=== PATIENT | male | born 1965 | race African-American/Black ===

== ENCOUNTER 2018-03-14 13:47 | Emergency (ER) | payer SELFPAY ==
[2018-03-14] MEDS ORDERED: Fluorescein Opthalmic Strip ONE (14:19)
[2018-03-14] MEDS ORDERED: Proparacaine 0.5% Opth 15 ML BOT ONE (14:19)
== END 2018-03-14 15:07 | disposition home or self-care (01) ==
LOC: ERS 13:47
DX: S05.02XA Injury of conjunctiva and corneal abrasion without foreign body, left eye, initial encounter (principal); I11.0 Hypertensive heart disease with heart failure; I50.9 Heart failure, unspecified; F17.210 Nicotine dependence, cigarettes, uncomplicated; Z79.899 Other long term (current) drug therapy; Z79.84 Long term (current) use of oral hypoglycemic drugs; X58.XXXA Exposure to other specified factors, initial encounter
CPT/HCPCS: 99283

== ENCOUNTER 2018-07-28 10:58 | Emergency (ER) | payer SELFPAY ==
--- NOTE | 2018-07-28 12:07 | RAD ---
EXAM: CHEST PA AND LATERAL: History: 52-year-old male with history of wheezing cough for 3-4 days. Comparison: 07-29-14 FINDINGS: Heart size is normal. The lungs are clear. Slight costophrenic angle blunting. No confluent pneumonia , overt edema, or pleural effusion. IMPRESSION: No significant acute intrathoracic disease. Slight costophrenic angle blunting. Atherosclerosis of th e aorta. Overall improvement in appearance when compared to the prior study. POS: IVETH
[2018-07-28 12:34] LABS: #Basophils 0.1 thou/uL (0.0-0.2); #Eosinphils 0.1 thou/uL (0.0-0.7); #Lymphocytes 1.5 thou/uL (1.20-3.40); #Neutrophils 4.1 thou/uL (1.40-6.50); %Basophils 0.8 % (0.0-1.0); %Eosinophils 1.8 % (0.0-10.0); %Lymphocytes 21.8 % (21.0-51.0); %Monocytes 14.6 % (0.0-10.0); Hemoglobin 13.1 g/dL (14.0-18.0); Mean Corpuscular HGB CONC 32.7 g/dL (32.0-36.0); Mean Corpuscular Hemoglobin 28.5 pg (27.0-31.0); Mean Platelet Volume 9.3 fL (7.4-10.4); Platelet Count 137 thou/uL (130-400); RBC Distribution Width 12.5 % (11.5-14.5); White Blood Cell (WBC) Count 6.7 thou/uL (4.8-10.8)
[2018-07-28 13:03] LABS: ALT (SGPT) 16 U/L (8-55); AST (SGOT) 20 U/L (5-34); Albumin 4.1 g/dL (3.5-5.0); Alkaline Phosphatase 72 U/L (40-150); Anion Gap 11 mmol/L (10-20); BUN (Urea Nitrogen) 7 mg/dL (8.4-25.7); Bilirubin, Total 0.7 mg/dL (0.2-1.2); Calc. Creatinine Clearance 0 mL/min (70-130); Calcium 9.2 mg/dL (7.8-10.44); Carbon Dioxide 31 mmol/L (22-29); Chloride 105 mmol/L (98-107); Estimated GFR-MDRD 88; Glucose 101 mg/dL (70-105); Potassium 3.5 mmol/L (3.5-5.1); Protein, Total 7.1 g/dL (6.0-8.3); Sodium 143 mmol/L (136-145)
== END 2018-07-28 13:31 | disposition home or self-care (01) ==
LOC: ERS 10:58
DX: J06.9 Acute upper respiratory infection, unspecified (principal); I11.0 Hypertensive heart disease with heart failure; I50.9 Heart failure, unspecified; J42 Unspecified chronic bronchitis; F17.210 Nicotine dependence, cigarettes, uncomplicated; Z79.84 Long term (current) use of oral hypoglycemic drugs; Z79.82 Long term (current) use of aspirin; Z79.899 Other long term (current) drug therapy
CPT/HCPCS: 36415; 71046; 80053; 83880; 84484; 85025; 93005

== ENCOUNTER 2020-07-14 04:39 | Inpatient (IN) | payer SELFPAY ==
[2020-07-14] MEDS ORDERED: Furosemide 40 MG/4 ML VIAL ONE ×2 (04:59→14:28)
[2020-07-14] MEDS ORDERED: Nitroglycerin 2% Ointment 1 INCH/1 GM Packet ONE (04:59)
[2020-07-14] MEDS ORDERED: Furosemide 20 MG/2 ML VIAL ONE (04:59)
[2020-07-14 05:30] LABS: #Basophils 0.1 thou/uL (0.0-0.2); #Eosinphils 0.3 thou/uL (0.0-0.7); #Lymphocytes 1.2 thou/uL (1.20-3.40); #Monocytes 0.5 thou/uL (0.11-0.59); #Neutrophils 2.6 thou/uL (1.40-6.50); %Basophils 1.1 % (0.0-1.0); %Lymphocytes 26.3 % (21.0-51.0); %Monocytes 10.8 % (0.0-10.0); %Neutrophils 55.9 % (42.0-75.0); Hemoglobin 13.8 g/dL (14.0-18.0); Mean Corpuscular HGB CONC 32.9 g/dL (32.0-36.0); Mean Corpuscular Hemoglobin 29.6 pg (27.0-31.0); Mean Corpuscular Volume 89.8 fL (78.0-98.0); Mean Platelet Volume 10.9 fL (7.4-10.4); Platelet Count 140 thou/uL (130-400); RBC Distribution Width 12.1 % (11.5-14.5); Red Blood Cell (RBC) Count 4.67 mill/uL (4.70-6.10); White Blood Cell (WBC) Count 4.6 thou/uL (4.8-10.8)
[2020-07-14 05:40] LABS: ALT (SGPT) 48 U/L (8-55); AST (SGOT) 50 U/L (5-34); Albumin 3.8 g/dL (3.5-5.0); Alkaline Phosphatase 74 U/L (40-110); Anion Gap 15 mmol/L (10-20); BUN (Urea Nitrogen) 23 mg/dL (8.4-25.7); Bilirubin, Total 0.3 mg/dL (0.2-1.2); Calc. Creatinine Clearance 0 mL/min (70-130); Calcium 8.6 mg/dL (7.8-10.44); Carbon Dioxide 22 mmol/L (22-29); Chloride 110 mmol/L (98-107); Globulin 2.8 g/dL (2.4-3.5); Glucose 112 mg/dL (70-105); Protein, Total 6.6 g/dL (6.0-8.3); Sodium 143 mmol/L (136-145)
[2020-07-14 06:02] LABS: CKMB 2.7 ng/mL (0-6.6)
[2020-07-14] MEDS ORDERED: Aspirin Chewable 81 MG TAB ONE (06:49)
--- NOTE | 2020-07-14 07:57 | RAD ---
XR Chest 1 View Portable HISTORY: Shortness of breath COMPARISON: 07/28/2018 FINDINGS: The heart size is borderline. The aorta is tortuous. There is haziness in the right lower l kandice. No pneumothoraces or pleural effusions are seen. There are degenerative changes in the spine. IMPRESSION: Probable early/developing pneumonia.
[2020-07-14 09:20] LABS: Troponin I 0.081 ng/mL (< 0.028)
[2020-07-14] MEDS ORDERED: Dextrose 50% Abboject 50 ML SYRINGE SLOW IVP PRN (09:37)
[2020-07-14] MEDS ORDERED: Dextrose 5% in Water 1,000 ML IV PRN (09:37)
--- NOTE | 2020-07-14 09:52 | PDOC.HHP ---
Hospitalist HPI - History of Present Illness History of Present Illness: ADMISSION DATE: 07/14/2020 TIME OF ASSESSMENT: 04 15 PRIMARY CARE PHYSICIAN: [facility] CHIEF COMPLAINT: Shortness of breath HPI: Patient is a very pleasant 54-year-old male past medical history significant for congestive heart failure, hypertension, hyperlipidemia who is not been able to be compliant with his medications for few months now. He states that he has been off of his Lasix, lisinopril, and hydralazine since the pandemic started as he has not been able to get in with his doctor and has not had insurance. He has been compliant with his carvedilol. Patient states that 7 days ago he felt short of breath and began to wheeze. He knew that it was his CHF as he is well versed in the symptoms of it. Last night and today he woke up at night from difficulty breathing when he was lying down. He also states that his stomach has been swelling some but has not noticed any swelling in his extremities. Patient denies fever, contact with sick persons, bowel or bladder changes, chest pain. Patient also is a type II diabetic however he has been off of his medications per doctor's orders since he was successful with a 70 pound weight loss with changes to his diet. He states his base weight is approximately 180 pounds now. Patient does have history of previous illicit drug use. ED COURSE: Vital Signs: Blood pressure 159/83, pulse 57, respiratory rate 20, temp 98.1, 96% on 2 L Patient has had x-ray, EKG, and lab work completed. He has been administered aspirin 324 mg oral, furosemide 60 mg IV, nitro 1 inch topical. PAST MEDICAL HISTORY: CHF, hypertension, hyperlipidemia, type 2 diabetes PAST SURGICAL HISTORY: None SOCIAL HISTORY: Patient lives in a house with roommates. He smokes half a pack per day of cigarettes, drinks beer occasionally and denies any illicit drug use. FAMILY HISTORY: Diabetes type 2 ALLERGIES: No known drug allergies CURRENT MEDICATIONS: Carvedilol Patient has been prescribed Lasix, lisinopril, hydralazine previously but has not taken them in the past months due to insurance reasons Hospitalist ROS - Review of Systems Respiratory: reports: shortness of breath Cardiovascular: reports: orthopnea All other systems reviewed; all pertinent +/- noted in HPI/Subj - Exam General Appearance: NAD, awake alert ENT: normocephalic atraumatic Neck: supple Heart: RRR, no murmur, no gallops, no rubs, normal peripheral pulses Respiratory: CTAB, no wheezes, no rales, no ronchi, normal chest expansion Gastrointestinal: soft, non-tender, normal bowel sounds, distended (Slightly) Extremities: no edema Skin: normal turgor Neurological: no focal deficits Musculoskeletal: normal tone, normal strength, no muscle wasting Psychiatric: normal affect, normal behavior, A&O x 3 Hospitalist Results - Labs Result Diagrams: 07/14/20 04:57 07/14/20 04:57 Lab results: WBC 4.6 thou/uL (4.8-10.8) L 07/14/20 04:57 Hgb 13.8 g/dL (14.0-18.0) L 07/14/20 04:57 Hct 42.0 % (42.0-52.0) 07/14/20 04:57 MCV 89.8 fL (78.0-98.0) 07/14/20 04:57 Plt Count 140 thou/uL (130-400) 07/14/20 04:57 Neutrophils % 55.9 % (42.0-75.0) 07/14/20 04:57 Sodium 143 mmol/L (136-145) 07/14/20 04:57 Potassium 4.0 mmol/L (3.5-5.1) 07/14/20 04:57 Chloride 110 mmol/L (98-107) H 07/14/20 04:57 Carbon Dioxide 22 mmol/L (22-29) 07/14/20 04:57 BUN 23 mg/dL (8.4-25.7) 07/14/20 04:57 Creatinine 1.26 mg/dL (0.7-1.3) 07/14/20 04:57 Glucose 112 mg/dL (70-105) H 07/14/20 04:57 Calcium 8.6 mg/dL (7.8-10.44) 07/14/20 04:57 Total Bilirubin 0.3 mg/dL (0.2-1.2) 07/14/20 04:57 AST 50 U/L (5-34) H 07/14/20 04:57 ALT 48 U/L (8-55) 07/14/20 04:57 Alkaline Phosphatase 74 U/L (40-110) 07/14/20 04:57 CK-MB (CK-2) 2.7 ng/mL (0-6.6) 07/14/20 04:57 Troponin I 0.081 ng/mL (< 0.028) H 07/14/20 08:45 B-Natriuretic Peptide 373.9 pg/mL (0-100) H 07/14/20 04:57 Serum Total Protein 6.6 g/dL (6.0-8.3) 07/14/20 04:57 Albumin 3.8 g/dL (3.5-5.0) 07/14/20 04:57 - EKG Interpretation EKG: Sinus rhythm 64 bpm - Radiology Interpretation Chest x-ray Status: image reviewed by me, report reviewed by me Additional Comment: Imaging report: Findings: Heart size is borderline. The aorta is tortuous. There is haziness in the right lower lung. No pneumothoraces or pleural effusions are seen. There are degenerative changes in the spine. Impression: Probable early/developing pneumonia Hospitalist H&P A/P - Plan Plan: Acute CHF exacerbation Continue IV diuresis No current echowe will obtain Monitor on telemetry Restart home medications slowly as he has not been on them in quite some time Restart aspirin Elevated troponins Denies chest pain Possibly due to demand ischemia Continue to trend troponins and monitor for chest pain or increasing shortness of breath Monitor on telemetry Hypertension Monitor every 4 hours or more if needed Restart home medications slowly Have as needed antihypertensives available if necessary Type 2 diabetes Monitor Accu-Cheks ACH Not currently taking medications as has been successful with weight loss, layton weathers MD stopped his Metformin Check A1c Medication noncompliance Patient has had issues since the start of the pandemic with insurance and work, will consult case management for possible assistance CODE STATUS: Full Surrogate decision maker would be his brother, Ray
[2020-07-14] MEDS ORDERED: Nicotine 14 MG PATCH ONE (10:55)
[2020-07-14] MEDS ORDERED: Acetaminophen 325 MG TAB ONE (10:55)
[2020-07-14] MEDS: Nicotine 14 MG PATCH TD SCH (10:58)
[2020-07-14] MEDS: Acetaminophen 325 MG TAB PO PRN ×2 (10:58→22:34)
[2020-07-14 11:25] LABS: Hemoglobin A1c 5.5 % (4.0-6.0)
[2020-07-14 11:42] LABS: Troponin I 0.073 ng/mL (< 0.028)
[2020-07-14 13:38] LABS: SARS-CoV-2 MS2 Positive; SARS-CoV-2 N Gene Negative; SARS-CoV-2 S Gene Negative; SARS-CoV-2 by NAA Not Detected (NotDetected); SARS-CoV-2 orf1ab Negative
[2020-07-14] MEDS: Furosemide 40 MG/4 ML VIAL SLOW IVP SCH (14:33)
[2020-07-14 16:18] LABS: Amphetamine Not Detected (NotDetected); Barbiturates Screen Not Detected (NotDetected); Benzodiazepine Screen Not Detected (NotDetected); Cocaine Metabolite Screen Detected (NotDetected); Medtox Control Line Valid? VALID (VALID); Medtox Reader # READER 4; Methadone Not Detected (NotDetected); Methamphetamine Not Detected (NotDetected); Opiate Screen Not Detected (NotDetected); Oxycodone Screen Not Detected (NotDetected); Phencyclidine (PCP) Not Detected (NotDetected); THC/Cannabinoid Screen Not Detected (NotDetected); Tricyclic Screen Not Detected (NotDetected)
[2020-07-14] MEDS ORDERED: hydrALAZINE 20 MG/ML VIAL SLOW IVP PRN (16:52)
[2020-07-14] MEDS ORDERED: hydrALAZINE 20 MG/ML VIAL ONE (16:52)
[2020-07-14] MEDS ORDERED: hydrALAZINE 20 MG/ML VIAL SLOW IVP SCH (17:00)
[2020-07-14] MEDS ORDERED: Melatonin 3 MG TAB PO PRN (23:41)
[2020-07-15 04:42] LABS: #Eosinphils 0.3 thou/uL (0.0-0.7); #Lymphocytes 1.3 thou/uL (1.20-3.40); #Monocytes 0.7 thou/uL (0.11-0.59); #Neutrophils 4.3 thou/uL (1.40-6.50); %Basophils 0.6 % (0.0-1.0); %Eosinophils 4.3 % (0.0-10.0); %Lymphocytes 19.3 % (21.0-51.0); %Monocytes 9.9 % (0.0-10.0); %Neutrophils 65.9 % (42.0-75.0); Hemoglobin 13.6 g/dL (14.0-18.0); Mean Corpuscular HGB CONC 32.8 g/dL (32.0-36.0); Mean Corpuscular Hemoglobin 29.1 pg (27.0-31.0); Mean Corpuscular Volume 88.7 fL (78.0-98.0); Mean Platelet Volume 10.5 fL (7.4-10.4); Platelet Count 147 thou/uL (130-400); RBC Distribution Width 12.1 % (11.5-14.5); Red Blood Cell (RBC) Count 4.69 mill/uL (4.70-6.10); White Blood Cell (WBC) Count 6.6 thou/uL (4.8-10.8)
[2020-07-15 04:50] VITALS: BMI 27.6
[2020-07-15 05:06] LABS: Anion Gap 12 mmol/L (10-20); BUN (Urea Nitrogen) 19 mg/dL (8.4-25.7); Calc. Creatinine Clearance 76 mL/min (70-130); Calcium 8.6 mg/dL (7.8-10.44); Carbon Dioxide 26 mmol/L (22-29); Chloride 106 mmol/L (98-107); Glucose 130 mg/dL (70-105); Potassium 3.1 mmol/L (3.5-5.1); Sodium 141 mmol/L (136-145)
[2020-07-15] MEDS ORDERED: Potassium Chloride 20 MEQ TAB PO SCH (06:15)
[2020-07-15] MEDS ORDERED: Magnesium 2 GM/50 ML 2 GM in Premix Bag 1 BAG IVPB SCH (06:15)
[2020-07-15] MEDS: Furosemide 40 MG/4 ML VIAL SLOW IVP SCH ×2 (06:21→15:23)
[2020-07-15] MEDS ORDERED: Aspirin 325 MG TAB PO SCH (09:00)
[2020-07-15] MEDS ORDERED: Lisinopril 2.5 MG TAB PO SCH (09:00)
[2020-07-15] MEDS: Nicotine 14 MG PATCH TD SCH (12:30)
--- NOTE | 2020-07-15 14:31 | PDOC.DS.DS ---
Provider - Provider Date of Admission: 07/14/20 07:07 Date of Discharge: 07/15/20 Admitting Provider: Lois Morales MD Primary Care Physician: [facility] Course - Hospital Course Hospital Course: Discharge diagnosis: 1. Acute on chronic systolic congestive heart failure NYHA class III 2. Cardiomyopathy 3. Hypokalemia 4. Urine drug screen positive for cocaine metabolites Hospital course: Patient is a pleasant 54-year-old gentleman who was admitted to the hospital for congestive heart failure exacerbation. He improved with diuretics. 2D echocardiogram showed left ventricle ejection fraction of 25 to 30%. He has been advised to follow-up with can washer as outpatient. 21 Thanks for allowing me to participate in your patient's care. Please feel free to contact me with any questions or concerns. Approximately Discharge destination: Home Total amount of time spent coordinating this discharge: 32 minutes Resuscitation Status: 07/14/20 09:37 Resuscitation Status Routine Co-Sign Provider: Resuscitation Status: FULL: Full Resuscitation Discussed with: pt - Labs Lab Results: 07/15/20 04:25 07/15/20 04:25 Abnormal Lab Results - Last 48 hrs 07/14/20 04:57: Chloride 110 H, AST 50 H 07/14/20 04:57: B-Natriuretic Peptide 373.9 H 07/14/20 04:57: WBC 4.6 L, RBC 4.67 L, Hgb 13.8 L, MPV 10.9 H, Monocytes % 10.8 H, Basophils % 1.1 H 07/14/20 04:57: Troponin I 0.110 H 07/14/20 08:45: Troponin I 0.081 H 07/14/20 10:29: Troponin I 0.073 H 07/14/20 15:49: U Cocaine Metab Screen Detected H 07/15/20 04:25: Potassium 3.1 L 07/15/20 04:25: RBC 4.69 L, Hgb 13.6 L, Hct 41.6 L, MPV 10.5 H, Lymphocytes % 19.3 L, Monocytes # 0.7 H - Physical Exam Vitals: Vital Signs (12 hours) Temp Pulse Resp BP Pulse Ox 07/15/20 12:31 98.4 F 62 18 141/75 H 98 07/15/20 08:46 98.4 F 60 15 137/90 98 07/15/20 04:30 98.1 F 50 L 18 157/75 H 97 07/15/20 04:00 98.1 F 50 L 18 157/55 H 96 Weight Weight 187 lb 4.8 oz Physical Exam: The patient was seen and examined on the day of discharge. Patient denies chest pain or shortness of breath. Vital signs are stable. S1 and S2 are heard. Lungs are clear to auscultation bilaterally. Plan - Discharge Medications Prescriptions: Carvedilol [Coreg] 3.125 mg PO BID #60 tablet Aspirin [Ecotrin Low Strength] 81 mg PO DAILY #30 tab Furosemide 40 mg PO DAILY #30 tablet Lisinopril 5 mg PO DAILY #30 tablet Potassium Chloride 10 meq PO Q48H #15 tab Home Medications: Medication Instructions Recorded Confirmed Type Aspirin [Ecotrin Low Strength] 81 mg PO DAILY #30 tab 07/15/20 Rx Carvedilol [Coreg] 3.125 mg PO BID #60 tablet 07/15/20 Rx Furosemide 40 mg PO DAILY #30 tablet 20 Rx Lisinopril 5 mg PO DAILY #30 tablet 07/15/20 Rx Potassium Chloride 10 meq PO Q48H #15 tab 07/15/20 Rx Allergies: No Known Drug Allergies Allergy (Verified 07/28/14 06:12) - Discharge Instructions Discharge Instructions:: Stop cocaine use. Stay compliant with her medications. Check your blood pressure and heart rate 3 times a day and shows readings to your primary care provider. Have your kidney function and electrolytes checked through primary care provider's office in 5 to 7 days. - Follow up Plan Referrals: Cardiac Rehab - [facility] [Outside] - 7 Days (Your doctor has ordered outpatient cardiac rehab for you to begin within 1-2 weeks after you go home from the hospital. The location nearest to you is the [facility]. We will call you in 3-5 days to get you scheduled for your evaluation. If you do not receive a call, please reach out to us at [phone] and request an appointment.) Shani Webb NP [[facility]] - 07/22/20 10:00 am (Please remember to bring all medication bottles to clinic along with and all hospital discharge paperwork. PLEASE CALL AND CONFIRM YOUR APPOINTMENT. ) Behzad Bergeron MD [Active] - 3-4 Weeks (PLEASE CALL AND SCHEDULE AN APPOINTMENT. ) Disposition: HOME Quality - Care Measures CORE MEASURES:: HF - Stroke/TIA Did you prescribe antithrombotic therapy?: Yes Did you prescribe anticoagulant for A Fib/Flutter?: No Specify reason for no DC anticoagulant: Treatment not indicated Did you prescribe a statin medication?: No Specify reason for no DC statin medication: Treatment not indicated
[2020-07-15 15:44] VITALS: TEMP 98.3
[2020-07-15] MEDS ORDERED: hydrALAZINE 25 MG TAB PO SCH (17:45)
[2020-07-15 19:31] VITALS: BP 163/96
[2020-07-15] MEDS ORDERED: FLU VACC QS2020-21(6MOS UP)/PF 60 MCG/0.5 ML SYRINGE IM ONE (21:00)
--- NOTE | 2020-07-19 11:00 | EKG ---
Test Reason : DYSPNEA Blood Pressure : / mmHG Vent. Rate : 064 BPM Atrial Rate : 064 BPM P-R Int : 152 ms QRS Dur : 098 ms QT Int : 440 ms P-R-T Axes : 034 072 098 degrees QTc Int : 453 ms Normal sinus rhythm Moderate voltage criteria for LVH, may be normal variant Borderline ECG Confirmed by SHAAN ZUNIGA DO ([id number]), senior editor BERNY MIXON ([id number]) on 07/19/2020 11:00:11 AM Referred By: Confirmed By:SHAAN ZUNIGA DO
== END 2020-07-15 18:54 | disposition home or self-care (01) | DRG 292 ==
LOC: ERS 04:39 → ERHOLD 07:07 → 2NO 18:35
PROVIDERS: ADMIT Internal Medicine; ATTEND Internal Medicine
DX: I11.0 Hypertensive heart disease with heart failure (principal); I24.8 Other forms of acute ischemic heart disease; E11.9 Type 2 diabetes mellitus without complications; I50.23 Acute on chronic systolic (congestive) heart failure; E87.6 Hypokalemia; I42.9 Cardiomyopathy, unspecified; J42 Unspecified chronic bronchitis; Z79.899 Other long term (current) drug therapy; Z79.82 Long term (current) use of aspirin; E78.5 Hyperlipidemia, unspecified; F17.210 Nicotine dependence, cigarettes, uncomplicated; Z91.14 Patient's other noncompliance with medication regimen
CPT/HCPCS: 36415; 36416; 71045; 80048; 80053; 80306; 82553; 83036; 83735; 83880; 84484; 85025; 87635; 93005; 93306; 96374; J0360; J1940; J3475; U0003

== ENCOUNTER 2021-04-05 20:26 | Emergency (ER) | payer SELFPAY ==
[2021-04-05 21:32] LABS: #Eosinphils 0.4 thou/uL (0.0-0.7); #Lymphocytes 1.1 thou/uL (1.20-3.40); #Monocytes 0.6 thou/uL (0.11-0.59); %Basophils 0.3 % (0.0-1.0); %Lymphocytes 13.9 % (21.0-51.0); %Monocytes 7.8 % (0.0-10.0); Hemoglobin 15.5 g/dL (14.0-18.0); Mean Corpuscular HGB CONC 33.3 g/dL (32.0-36.0); Mean Corpuscular Hemoglobin 30.1 pg (27.0-31.0); Mean Corpuscular Volume 90.3 fL (78.0-98.0); Mean Platelet Volume 9.1 fL (7.4-10.4); Platelet Count 188 thou/uL (130-400); Red Blood Cell (RBC) Count 5.15 mill/uL (4.70-6.10); White Blood Cell (WBC) Count 8.2 thou/uL (4.8-10.8)
[2021-04-05 21:37] LABS: Bilirubin Negative (Negative); Blood, Urine Trace (Negative); Clarity Turbid (Clear); Glucose, Urine (Dipstick) Normal (Negative); Ketone, Urine Trace mg/dL (Negative); Leukocyte Negative Leu/uL (Negative); Nitrite Negative (Negative); Protein, Urine (Dipstick) 300 mg/dL (Neg-Trace); RBC/HPF 0-3 HPF (0-3); Specific Gravity, Urine 1.038 (1.002-1.036); Squamous Epithelial 0-3 HPF (0-3); WBC/HPF 0-3 HPF (0-3); pH, Urine 5.5 (5.0-9.0)
[2021-04-05 21:38] LABS: Bacteria/HPF None Seen HPF (None Seen); Calcium Oxalate Crystals 3+ HPF (None Seen); Mucous/LPF 1+ LPF (<2+)
[2021-04-05] MEDS ORDERED: Ondansetron PF 4 MG/2 ML Vial ONE (21:43)
[2021-04-05 21:52] LABS: ALT (SGPT) 18 U/L (8-55); AST (SGOT) 17 U/L (5-34); Albumin 4.8 g/dL (3.5-5.0); Alkaline Phosphatase 72 U/L (40-110); Anion Gap 14 mmol/L (10-20); BUN (Urea Nitrogen) 19 mg/dL (8.4-25.7); Bilirubin, Total 0.4 mg/dL (0.2-1.2); Calc. Creatinine Clearance 0 mL/min (70-130); Calcium 10.2 mg/dL (7.8-10.44); Carbon Dioxide 19 mmol/L (22-29); Chloride 112 mmol/L (98-107); Glucose 112 mg/dL (70-105); Potassium 4.1 mmol/L (3.5-5.1); Protein, Total 8.8 g/dL (6.0-8.3); Sodium 141 mmol/L (136-145)
== END 2021-04-05 22:56 | disposition home or self-care (01) ==
LOC: ERS 20:26
DX: K52.9 Noninfective gastroenteritis and colitis, unspecified (principal); I11.0 Hypertensive heart disease with heart failure; I50.9 Heart failure, unspecified; F17.210 Nicotine dependence, cigarettes, uncomplicated
CPT/HCPCS: 80053; 81003; 81015; 85025; 96374; J2405

== ENCOUNTER 2021-11-27 06:19 | Emergency (ER) | payer SELFPAY ==
[2021-11-27] MEDS ORDERED: predniSONE 20 MG TAB ONE (06:41)
== END 2021-11-27 08:20 | disposition home or self-care (01) ==
LOC: ERS 06:19
DX: J06.9 Acute upper respiratory infection, unspecified (principal); I11.0 Hypertensive heart disease with heart failure; I50.9 Heart failure, unspecified; E11.9 Type 2 diabetes mellitus without complications; F17.210 Nicotine dependence, cigarettes, uncomplicated
CPT/HCPCS: 71045; 93005; J7512; J7620

== ENCOUNTER 2022-02-10 09:00 | Emergency (ER) | payer SELFPAY ==
[2022-02-10] MEDS ORDERED: Ketorolac Tromethamine 30 MG/ML VIAL ONE (10:24)
== END 2022-02-10 11:47 | disposition home or self-care (01) ==
LOC: ERS 09:00
DX: M54.50 Low back pain, unspecified (principal); I11.0 Hypertensive heart disease with heart failure; I50.9 Heart failure, unspecified; E11.9 Type 2 diabetes mellitus without complications; J45.909 Unspecified asthma, uncomplicated; F17.210 Nicotine dependence, cigarettes, uncomplicated; Z79.899 Other long term (current) drug therapy
CPT/HCPCS: 96374; J1885

== ENCOUNTER 2022-06-15 07:50 | Emergency (ER) | payer SELFPAY ==
[2022-06-15] MEDS ORDERED: Cyclobenzaprine 10 MG TAB ONE (08:53)
== END 2022-06-15 08:58 | disposition home or self-care (01) ==
LOC: ERS 07:50
DX: M54.41 Lumbago with sciatica, right side (principal); E11.9 Type 2 diabetes mellitus without complications; I50.9 Heart failure, unspecified; I11.0 Hypertensive heart disease with heart failure; J45.909 Unspecified asthma, uncomplicated; F17.210 Nicotine dependence, cigarettes, uncomplicated; Z79.82 Long term (current) use of aspirin; Z79.899 Other long term (current) drug therapy

== ENCOUNTER 2022-06-22 15:35 | Emergency (ER) | payer SELFPAY ==
[2022-06-22] MEDS ORDERED: Dexamethasone 10 MG/ML VIAL ONE (17:42)
== END 2022-06-22 17:48 | disposition short-term general hospital (02) ==
LOC: ERS 15:35
DX: M54.41 Lumbago with sciatica, right side (principal); E11.9 Type 2 diabetes mellitus without complications; J45.909 Unspecified asthma, uncomplicated; I11.0 Hypertensive heart disease with heart failure; I50.9 Heart failure, unspecified; F17.210 Nicotine dependence, cigarettes, uncomplicated; Z79.82 Long term (current) use of aspirin; Z79.84 Long term (current) use of oral hypoglycemic drugs
CPT/HCPCS: 99283; J1100

== ENCOUNTER 2023-07-13 10:20 | Emergency (ER) | payer SELFPAY ==
[2023-07-13] MEDS ORDERED: Ondansetron ODT 4 MG TAB ONE (11:06)
[2023-07-13] MEDS ORDERED: Bismuth SubsALICYLATE 30 ML(17.5 mg/mL) Susp PO SCH (11:15)
== END 2023-07-13 12:19 | disposition home or self-care (01) ==
LOC: ERS 10:20
DX: A08.4 Viral intestinal infection, unspecified (principal); F17.210 Nicotine dependence, cigarettes, uncomplicated; I11.0 Hypertensive heart disease with heart failure; I50.9 Heart failure, unspecified; E11.9 Type 2 diabetes mellitus without complications; J45.909 Unspecified asthma, uncomplicated; Z79.899 Other long term (current) drug therapy; Z79.82 Long term (current) use of aspirin
CPT/HCPCS: 99284; Q0162

== ENCOUNTER 2024-09-19 12:18 | Observation (INO) | payer OTHER ==
[2024-09-19 13:05] LABS: #Basophils 0.03 10x3/uL (0.0-0.2); %Basophils 0.8 % (0.0-1.0); %Eosinophils 6.2 % (0.0-10.0); %Lymphocytes 22.6 % (21.0-51.0); %Monocytes 15.1 % (0.0-10.0); Hematocrit 41.9 % (42.0-52.0); Hemoglobin 13.5 g/dL (14.0-18.0); Mean Corpuscular HGB CONC 32.2 g/dL (32.0-36.0); Mean Corpuscular Hemoglobin 27.7 pg (27.0-31.0); Mean Corpuscular Volume 85.9 fL (78.0-98.0); Mean Platelet Volume 11.3 fL (7.4-10.4); Platelet Count 153 10x3/uL (130-400); RBC Distribution Width 13.2 % (11.5-14.5); Red Blood Cell (RBC) Count 4.88 mill/uL (4.70-6.10)
[2024-09-19 13:27] LABS: Troponin I 0.089 ng/mL (< 0.028)
[2024-09-19 13:38] LABS: ALT (SGPT) 20 U/L (Less than 45); AST (SGOT) 33 U/L (11-34); Albumin 3.5 g/dL (3.1-4.5); Alkaline Phosphatase 83 U/L (40-110); Anion Gap 12 mmol/L (10-20); BUN (Urea Nitrogen) 14 mg/dL (8.4-25.7); Bilirubin, Total 0.4 mg/dL (0.3-1.2); Calc. Creatinine Clearance 0 mL/min (70-130); Calcium 8.6 mg/dL (7.8-10.44); Carbon Dioxide 22 mmol/L (23-31); Chloride 108 mmol/L (98-107); Estimated GFR 82; Globulin 3.2 g/dL (2.4-3.5); Glucose 137 mg/dL (80-115); Potassium 3.1 mmol/L (3.5-5.1); Protein, Total 6.7 g/dL (5.8-8.1); Sodium 139 mmol/L (136-145)
[2024-09-19] MEDS ORDERED: Dexamethasone 10 MG/ML VIAL ONE (13:42)
[2024-09-19] MEDS ORDERED: Ipratropium/Albuterol 3 ML NEB ONE (14:33)
[2024-09-19] MEDS ORDERED: Aspirin Chewable 81 MG TAB ONE (15:44)
[2024-09-19] MEDS ORDERED: Furosemide 40 MG (4 mL) VIAL ONE (15:44)
[2024-09-19] MEDS ORDERED: Albuterol 2.5 MG (0.5 mL) NEB ONE (16:32)
[2024-09-19] MEDS ORDERED: Albuterol 2.5 MG (3 mL) NEB ONE (16:32)
[2024-09-19 17:20] LABS: Troponin I 0.107 ng/mL (< 0.028)
[2024-09-19 18:32] LABS: Magnesium 1.9 mg/dL (1.6-2.6)
[2024-09-19] MEDS ORDERED: Dextrose 5% in Water 1,000 ML IV PRN (20:43)
[2024-09-19] MEDS ORDERED: Ondansetron PF 4 MG/2 ML Vial IVP PRN ×2 (20:43→20:45)
[2024-09-19] MEDS ORDERED: Insulin Lispro 100 UNIT/ML 10 ML VIAL SC PRN ×2 (20:43)
[2024-09-19] MEDS ORDERED: Acetaminophen 325 MG TAB PO PRN ×2 (20:43→20:45)
[2024-09-19] MEDS ORDERED: Ondansetron ODT 4 MG TAB PO PRN (20:43)
[2024-09-19] MEDS ORDERED: Dextrose 50% Abboject 50 ML SYRINGE SLOW IVP PRN (20:43)
[2024-09-19] MEDS ORDERED: Glucagon 1 MG/ML KIT IM PRN (20:43)
[2024-09-19] MEDS ORDERED: Ondansetron ODT 4 MG TAB SL PRN (20:45)
[2024-09-19] MEDS ORDERED: Ipratropium/Albuterol 3 ML NEB NEB PRN (20:51)
[2024-09-19 20:58] LABS: Troponin I 0.076 ng/mL (< 0.028)
[2024-09-19 21:51] VITALS: BMI 25.0
[2024-09-19] MEDS: Lisinopril 5 MG TAB PO SCH (22:34)
[2024-09-19] MEDS: Carvedilol 3.125 MG TAB PO SCH (22:34)
[2024-09-19] MEDS ORDERED: Benzonatate 100 MG CAP PO PRN (22:35)
[2024-09-19] MEDS: Potassium Chloride 20 MEQ TAB PO SCH (22:36)
[2024-09-19] MEDS: cefTRIAXone\\ROCEPHIN 1 GM in Sodium Chloride 0.9% 100 ML IVPB SCH (22:42)
[2024-09-19] MEDS: Doxycycline 100 MG CAP PO SCH (22:42)
[2024-09-19] MEDS: guaiFENesin ER 600 MG TAB PO SCH (22:43)
[2024-09-19 22:53] LABS: Amphetamine Not Detected (NotDetected); Barbiturates Screen Not Detected (NotDetected); Benzodiazepine Screen Not Detected (NotDetected); Cocaine Metabolite Screen Detected (NotDetected); Methadone Not Detected (NotDetected); Methamphetamine Not Detected (NotDetected); Opiate Screen Not Detected (NotDetected); Oxycodone Screen Not Detected (NotDetected); Phencyclidine (PCP) Not Detected (NotDetected); THC/Cannabinoid Screen Not Detected (NotDetected); Tricyclic Screen Not Detected (NotDetected)
[2024-09-19 22:59] LABS: Legionella Urinary Ag Negative (Negative)
[2024-09-19] MEDS: Ipratropium/Albuterol 3 ML NEB NEB SCH (23:00)
[2024-09-19 23:05] LABS: Strep pneumo Urine Ag NEGATIVE (NEGATIVE)
[2024-09-20] MEDS: Sodium Chloride 0.9% 100 ML ONE (00:06)
[2024-09-20 06:41] LABS: #Basophils 0.03 10x3/uL (0.0-0.2); %Basophils 0.5 % (0.0-1.0); %Eosinophils 0.5 % (0.0-10.0); %Lymphocytes 18.1 % (21.0-51.0); %Monocytes 14.1 % (0.0-10.0); %Neutrophils 66.3 % (42.0-75.0); Hematocrit 41.1 % (42.0-52.0); Hemoglobin 12.8 g/dL (14.0-18.0); Mean Corpuscular HGB CONC 31.1 g/dL (32.0-36.0); Mean Corpuscular Hemoglobin 26.8 pg (27.0-31.0); Mean Platelet Volume 11.4 fL (7.4-10.4); Platelet Count 156 10x3/uL (130-400); RBC Distribution Width 13.2 % (11.5-14.5); Red Blood Cell (RBC) Count 4.78 mill/uL (4.70-6.10)
[2024-09-20] MEDS ORDERED: Ipratropium/Albuterol 3 ML NEB NEB SCH (07:00)
[2024-09-20 07:09] LABS: Anion Gap 12 mmol/L (10-20); BUN (Urea Nitrogen) 16 mg/dL (8.4-25.7); Calc. Creatinine Clearance 93 mL/min (70-130); Calcium 8.9 mg/dL (7.8-10.44); Carbon Dioxide 24 mmol/L (23-31); Chloride 107 mmol/L (98-107); Estimated GFR 96; Glucose 128 mg/dL (80-115); Magnesium 1.9 mg/dL (1.6-2.6); Potassium 3.8 mmol/L (3.5-5.1); Sodium 139 mmol/L (136-145)
[2024-09-20] MEDS: Lisinopril 5 MG TAB PO SCH (09:23)
[2024-09-20] MEDS: Aspirin 81 mg Enteric Coated Tablet PO SCH (09:23)
[2024-09-20] MEDS: Amlodipine 5 MG TAB PO SCH (09:23)
[2024-09-20] MEDS: methylPREDNISolone Sod Succ 40 MG VIAL IVP SCH (09:24)
[2024-09-20] MEDS: Doxycycline 100 MG CAP PO SCH (09:24)
[2024-09-20] MEDS: Furosemide 40 MG TAB PO SCH (09:24)
[2024-09-20] MEDS: Carvedilol 3.125 MG TAB PO SCH (09:24)
[2024-09-20] MEDS: guaiFENesin ER 600 MG TAB PO SCH (09:24)
[2024-09-20] MEDS: Spironolactone 25 MG TAB PO SCH (09:25)
[2024-09-20 12:03] VITALS: BP 179/100; TEMP 97.4
== END 2024-09-20 12:26 | disposition home or self-care (01) ==
LOC: ERS 12:18 → OBS 18:43
PROVIDERS: ADMIT Internal Medicine; ATTEND Internal Medicine
DX: J45.901 Unspecified asthma with (acute) exacerbation (principal); I11.0 Hypertensive heart disease with heart failure; I50.22 Chronic systolic (congestive) heart failure; I5A Non-ischemic myocardial injury (non-traumatic); E87.6 Hypokalemia; F17.210 Nicotine dependence, cigarettes, uncomplicated; F14.90 Cocaine use, unspecified, uncomplicated; Z79.82 Long term (current) use of aspirin; Z79.51 Long term (current) use of inhaled steroids; Z79.2 Long term (current) use of antibiotics; Z79.899 Other long term (current) drug therapy
CPT/HCPCS: 36415; 36416; 71045; 80048; 80053; 80306; 83735; 83880; 84484; 85025; 87428; 87449; 87899; 93005; 94640; 94760; 96374; 96375; G0378; J0696; J1100; J1940; J2919; J7611; J7620

== ENCOUNTER → 2025-07-05 | Emergency (ER) | payer OTHER | LOC: ERS 14:24 | DX: Z53.21 Procedure and treatment not carried out due to patient leaving prior to being seen by health care provider (principal) ==